=== PATIENT | male | born 1980 | race African-American/Black ===

== ENCOUNTER 2017-12-07 21:41 | Emergency (ER) | payer OTHER ==
[2017-12-07] MEDS: IPRATROPIUM (NEB) 0.5 MG/2.5 ML AMP NEB (23:07)
[2017-12-07] MEDS: LEVALBUTEROL (NEB) 1.25 MG/0.5 ML AMP INH (23:07)
[2017-12-07] MEDS: predniSONE 20 MG TAB PO (23:54)
== END 2017-12-08 00:29 | disposition home or self-care (01) ==
LOC: FTE 12-08 00:29
DX: J06.9 Acute upper respiratory infection, unspecified (principal); J45.901 Unspecified asthma with (acute) exacerbation
CPT/HCPCS: 71045; 87400; 94664; 99284-25